=== PATIENT | male | born 1950 | race Caucasian/White ===

== ENCOUNTER 2018-09-16 11:28 | Inpatient (IN) | payer BC, MEDICARE ==
[2018-09-16] MEDS ORDERED: NITROGLYCERIN SL TABS 0.4 MG TAB SUBLINGUAL STA ×3 (12:05)
[2018-09-16] MEDS ORDERED: ASPIRIN 81 MG PO STA (12:05)
--- NOTE | 2018-09-16 12:13 | ED ---
General Adult HPI - General Chief complaint: Chest Pain Stated complaint: Chest pain, SOB Time Seen by Provider: 09/16/18 11:56 Source: patient, RN notes reviewed Mode of arrival: ambulatory Limitations: no limitations - History of Present Illness Initial comments: Patient is a pleasant [age]-year-old male presenting to the emergency Department with complaints of chest discomfort. Symptoms have been steady for the past 4 days. Discomfort is right lateral chest. Patient has been coughing , nonproductive cough. Patient and family questioned if he has had low-grade fever. Discomfort increases with cough and deep breaths. No dyspnea. No history of similar symptoms previously. No leg pain or leg swelling. - Related Data Home Medications Medication Instructions Recorded Confirmed Naproxen Sodium [Aleve] 440 mg PO DAILY PRN 09/16/18 09/16/18 metroNIDAZOLE [metroNIDAZOLE 0.75% 1 applic TOPICAL DAILY 09/16/18 09/16/18 Gel] Allergies Allergy/AdvReac Type Severity Reaction Status Date / Time No Known Allergies Allergy Verified 09/16/18 13:06 Review of Systems ROS Statement: Those systems with pertinent positive or pertinent negative responses have been documented in the HPI. ROS Other: All systems not noted in ROS Statement are negative. Constitutional: Denies: fever Eyes: Denies: eye pain ENT: Denies: ear pain Respiratory: Reports: cough Cardiovascular: Reports: chest pain (Right lateral chest wall) Endocrine: Denies: fatigue Gastrointestinal: Denies: abdominal pain Genitourinary: Denies: dysuria Musculoskeletal: Denies: back pain Skin: Denies: rash Neurological: Denies: weakness Past Medical History Additional Past Medical History / Comment(s): vertigo, History of Any Multi-Drug Resistant Organisms: None Reported Past Surgical History: No Surgical Hx Reported Past Psychological History: No Psychological Hx Reported Smoking Status: Never smoker Past Alcohol Use History: Occasional Past Drug Use History: None Reported General Exam Limitations: no limitations General appearance: alert, in no apparent distress Head exam: Present: atraumatic Eye exam: Present: normal appearance, PERRL ENT exam: Present: normal oropharynx Neck exam: Present: normal inspection Respiratory exam: Present: normal lung sounds bilaterally, chest wall tenderness (Mild right lateral chest, lower.) Cardiovascular Exam: Present: regular rate, normal rhythm Expanded Peripheral pulses: 2+: Radial (R), Radial (L), Dorsalis Pedis (R), Dorsalis Pedis (L) GI/Abdominal exam: Present: soft. Absent: tenderness Extremities exam: Present: normal inspection. Absent: pedal edema, calf tenderness Neurological exam: Present: alert Psychiatric exam: Present: normal affect, normal mood Skin exam: Present: normal color Course Vital Signs 09/16/18 09/16/18 09/16/18 11:32 12:41 12:55 Temperature 99.0 F Pulse Rate 104 H 90 105 H Respiratory 18 18 20 Rate Blood Pressure 172/90 157/93 128/67 O2 Sat by Pulse 99 94 L 93 L Oximetry 09/16/18 09/16/18 09/16/18 13:03 13:17 13:45 Temperature 98.5 F Pulse Rate 75 89 89 Respiratory 20 20 20 Rate Blood Pressure 76/47 108/72 110/76 O2 Sat by Pulse 90 L 92 L 94 L Oximetry 09/16/18 15:07 Temperature Pulse Rate 80 Respiratory 20 Rate Blood Pressure 119/73 O2 Sat by Pulse 95 Oximetry EKG Findings - EKG Comments: EKG Findings:: Sinus tachycardia 104. NC 152. QRS 92. QT 3:30. QTC 444. Left axis. LVH criteria. No acute ST change. Medical Decision Making - Medical Decision Making Patient reevaluated and resting comfortably in bed. Patient and family updated. Case was discussed in detail with Dr. ashley, who will admit for hospital call. - Lab Data Result diagrams: 09/16/18 11:50 09/16/18 11:50 Lab Results 09/16/18 09/16/18 09/16/18 Range/Units 11:50 11:50 11:50 WBC 9.5 (3.8-10.6) k/uL RBC 5.30 (4.30-5.90) m/uL Hgb 16.6 (13.0-17.5) gm/dL Hct 48.1 (39.0-53.0) % MCV 90.7 (80.0-100.0) fL MCH 31.4 (25.0-35.0) pg MCHC 34.6 (31.0-37.0) g/dL RDW 12.9 (11.5-15.5) % Plt Count 304 (150-450) k/uL Neutrophils % 81 % Lymphocytes % 11 % Monocytes % 6 % Eosinophils % 1 % Basophils % 0 % Neutrophils # 7.7 (1.3-7.7) k/uL Lymphocytes # 1.1 (1.0-4.8) k/uL Monocytes # 0.5 (0-1.0) k/uL Eosinophils # 0.1 (0-0.7) k/uL Basophils # 0.0 (0-0.2) k/uL PT (9.0-12.0) sec INR (<1.2) APTT (22.0-30.0) sec D-Dimer (<0.60) mg/L FEU Sodium 139 (137-145) mmol/L Potassium 4.5 (3.5-5.1) mmol/L Chloride 105 (98-107) mmol/L Carbon Dioxide 23 (22-30) mmol/L Anion Gap 11 mmol/L BUN 20 (9-20) mg/dL Creatinine 0.91 (0.66-1.25) mg/dL Est GFR (CKD-EPI)AfAm >90 (>60 ml/min/1.73 sqM) Est GFR (CKD-EPI)NonAf 87 (>60 ml/min/1.73 sqM) Glucose 130 H (74-99) mg/dL Calcium 9.7 (8.4-10.2) mg/dL Magnesium 2.2 (1.6-2.3) mg/dL Total Bilirubin 1.0 (0.2-1.3) mg/dL AST 30 (17-59) U/L ALT 38 (21-72) U/L Alkaline Phosphatase 85 (38-126) U/L Total Creatine Kinase 80 (55-170) U/L CK-MB (CK-2) 0.7 (0.0-2.4) ng/mL CK-MB (CK-2) Rel Index 0.9 Troponin I <0.012 (0.000-0.034) ng/mL Total Protein 7.5 (6.3-8.2) g/dL Albumin 4.1 (3.5-5.0) g/dL 09/16/18 Range/Units 11:50 WBC (3.8-10.6) k/uL RBC (4.30-5.90) m/uL Hgb (13.0-17.5) gm/dL Hct (39.0-53.0) % MCV (80.0-100.0) fL MCH (25.0-35.0) pg MCHC (31.0-37.0) g/dL RDW (11.5-15.5) % Plt Count (150-450) k/uL Neutrophils % % Lymphocytes % % Monocytes % % Eosinophils % % Basophils % % Neutrophils # (1.3-7.7) k/uL Lymphocytes # (1.0-4.8) k/uL Monocytes # (0-1.0) k/uL Eosinophils # (0-0.7) k/uL Basophils # (0-0.2) k/uL PT 9.9 (9.0-12.0) sec INR 1.0 (<1.2) APTT 23.2 (22.0-30.0) sec D-Dimer 1.13 H (<0.60) mg/L FEU Sodium (137-145) mmol/L Potassium (3.5-5.1) mmol/L Chloride (98-107) mmol/L Carbon Dioxide (22-30) mmol/L Anion Gap mmol/L BUN (9-20) mg/dL Creatinine (0.66-1.25) mg/dL Est GFR (CKD-EPI)AfAm (>60 ml/min/1.73 sqM) Est GFR (CKD-EPI)NonAf (>60 ml/min/1.73 sqM) Glucose (74-99) mg/dL Calcium (8.4-10.2) mg/dL Magnesium (1.6-2.3) mg/dL Total Bilirubin (0.2-1.3) mg/dL AST (17-59) U/L ALT (21-72) U/L Alkaline Phosphatase (38-126) U/L Total Creatine Kinase (55-170) U/L CK-MB (CK-2) (0.0-2.4) ng/mL CK-MB (CK-2) Rel Index Troponin I (0.000-0.034) ng/mL Total Protein (6.3-8.2) g/dL Albumin (3.5-5.0) g/dL - Radiology Data Radiology results: report reviewed (Computed tomography scan shows no pulmonary embolism. There is concern for right middle lobe abscess. Probable atelectasis.), image reviewed (Chest x-ray shows bibasilar infiltrates) Disposition Clinical Impression: Lung abscess Disposition: ADMITTED IP TO THIS HOSP Is patient prescribed a controlled substance at d/c from ED?: No Referrals: None,Stated [REFERRING] - 1-2 days Decision Time: 15:43
--- NOTE | 2018-09-16 12:51 | XR ---
EXAMINATION TYPE: XR chest 2V DATE OF EXAM: 09/16/2018 COMPARISON: None INDICATION: Chest pain TECHNIQUE: Frontal and lateral views of the chest are obtained. FINDINGS: The heart size is normal. The pulmonary vasculature is normal. Left lower lobe increased lung markings are present. Correlate for left lower lobe pneumonia. Mild in filtrate may be at the right base.. IMPRESSION: 1. Bibasilar infiltrates. Correlate for pneumonia and atelectasis. Follow-up is recommended.
[2018-09-16] MEDS ORDERED: SODIUM CHLORIDE 0.9% 500 ML 500 ML IV ONE (13:12)
[2018-09-16] MEDS ORDERED: MORPHINE SULFATE 4 MG/ML SYRINGE IV STA (13:13)
[2018-09-16 13:22] LABS: Basophils % (A) 0 %; Eosinophils # (A) 0.1 k/uL (0-0.7); Eosinophils % (A) 1 %; HCT 48.1 % (39.0-53.0); HGB 16.6 gm/dL (13.0-17.5); Lymphocytes # (A) 1.1 k/uL (1.0-4.8); Lymphocytes % (A) 11 %; MCH 31.4 pg (25.0-35.0); MCHC 34.6 g/dL (31.0-37.0); MCV 90.7 fL (80.0-100.0); Mean Platelet Volume 8.6; Monocytes # (A) 0.5 k/uL (0-1.0); Monocytes % (A) 6 %; Neutrophils # (A) 7.7 k/uL (1.3-7.7); Neutrophils % (A) 81 %; Platelet Count 304 k/uL (150-450); RDW 12.9 % (11.5-15.5); WBC 9.5 k/uL (3.8-10.6)
[2018-09-16 13:37] LABS: Partial Thromboplastin Time 23.2 sec (22.0-30.0); Prothrombin Time 9.9 sec (9.0-12.0)
[2018-09-16 13:38] LABS: ALT 38 U/L (21-72); AST 30 U/L (17-59); Albumin 4.1 g/dL (3.5-5.0); Alkaline Phosphatase 85 U/L (38-126); Anion Gap 11 mmol/L; Blood Urea Nitrogen 20 mg/dL (9-20); Calcium 9.7 mg/dL (8.4-10.2); Carbon Dioxide 23 mmol/L (22-30); Glucose 130 mg/dL (74-99); Magnesium 2.2 mg/dL (1.6-2.3); Potassium 4.5 mmol/L (3.5-5.1); Sodium 139 mmol/L (137-145); Total Protein 7.5 g/dL (6.3-8.2)
[2018-09-16 13:46] LABS: Creatine Kinase 80 U/L (55-170)
[2018-09-16 13:59] LABS: Chloride 105 mmol/L (98-107); Creatine Kinase MB 0.7 ng/mL (0.0-2.4); Troponin I <0.012 ng/mL (0.000-0.034)
[2018-09-16 14:01] LABS: D-Dimer 1.13 mg/L FEU (<0.60)
--- NOTE | 2018-09-16 15:06 | CT ---
CT CHEST FOR PULMONARY EMBOLISM. EXAMINATION TYPE: CT angio chest DATE OF EXAM: 09/16/2018 INDICATION: chest pain CT DLP: 577.1 mGycm, Automated exposure control for dose reduction was used. CONTRAST: Patient injected with 100 mL of Isovue 370. COMPARISON: None TECHNIQUE: CT of the chest is performed on a spiral scan at 2 mm thick sections. Study is performed with intravenous contrast timed for evaluation for pulmonary embolism. This will limit additional po rtions of the evaluation. 3-D MIP images reconstructed by the technologist are reviewed on the compu ter in the coronal and sagittal planes. FINDINGS: No persistent filling defects are evident to suggest an acute pulmonary embolism. No mediastinal or hilar adenopathy enlarged by CT criteria is evident. The ascending aorta diameter at the level of the main pulmonary artery is 3.2 cm. The main pulmonary artery diameter at the bifur cation is 2.4 cm. There is a 6.0 x 3.3 cm heterogenous collection in the right middle lobe above the diaphragm. This marcelo s a heterogenous internal signal suggestive for abscess. Clinical correlation recommended. There is a small right pleural effusion. Streak opacities at bilateral lung bases. Correlate for atel ectasis and pneumonia. Some atelectasis or infiltrate may be within the lingula. There is mild fatty infiltration to the liver. Gallstone is present at the neck of the gallbladder. IMPRESSIONS: 1. No acute pulmonary embolism. 2. Collection with debris within the anterior right middle lobe above the diaphragm suspicious for ab scess. Clinical correlation recommended. 3. Small right lower lobe pleural effusion. Bibasilar infiltrates are present likely on the basis of atelectasis or possibly pneumonia. 4. Cholelithiasis
[2018-09-16] MEDS ORDERED: PIPERACILLIN-TAZOBACTAM 3.375 GM in SODIUM CHLORIDE 0.9% 100 ML IVPB STA (15:43)
[2018-09-16] MEDS ORDERED: LEVOFLOXACIN 750MG-D5W PMX 750 MG in DEXTROSE/WATER 1 150ML.BAG IVPB STA (15:43)
[2018-09-16] MEDS ORDERED: PNEUMONIA PROTOCOL UTILIZED 1 EACH MISC PO PRN (15:43)
[2018-09-16] MEDS: SODIUM CHLORIDE 0.9% 1,000 ML IV SCH (16:05)
--- NOTE | 2018-09-16 16:30 | P.HPIM ---
History of Present Illness H&P Date: 09/16/18 The patient is a 68 yo M with no significant PMH who presented to the ED for R sided chest pain of 5 days duration. He notes that he was in his usual state of health until 5 days ago when him and his developed a URI w/ cough, runny nose, and sore throat. He then subsequently developed a R sided pleuritic chest pain which he initially attributed to a muscle sprain likely from moving furniture around the house. The pain is pleuritic in nature, brought on w/ movement, deep breathing, or coughing w/ associated non-productive cough. He otherwise denied fever, chills, SOB, nausea, vomiting, visual disturbances, dizziness, LE pain, LE swelling, recent travel, sick contacts, difficuly swallowing, or aspirations. He has never had such symptoms before. He works at a [employer] company for [employer] In the ED, the patient had an extensive w/u WBC 9.5, Hgb 16.0, D-Dimer 1.13, Sodium 139, Cr 0.9. A Chest CTA was ordered and showed a 6.0 x 3.3 cm heterogenous collection in the R middle lobe over the diaphragm concerning for an abscess along w/ small R pleural effusion. Review of Systems Pertinent positives and negatives as discussed in HPI, a complete review of systems was performed and all other systems are negative. Past Medical History Additional Past Medical History / Comment(s): vertigo, History of Any Multi-Drug Resistant Organisms: None Reported Past Surgical History: No Surgical Hx Reported Past Psychological History: No Psychological Hx Reported Smoking Status: Never smoker Past Alcohol Use History: Occasional Past Drug Use History: None Reported Medications and Allergies Home Medications Medication Instructions Recorded Confirmed Type Naproxen Sodium [Aleve] 440 mg PO DAILY PRN 09/16/18 09/16/18 History metroNIDAZOLE [metroNIDAZOLE 0.75% 1 applic TOPICAL DAILY 09/16/18 09/16/18 History Gel] Allergies Allergy/AdvReac Type Severity Reaction Status Date / Time No Known Allergies Allergy Verified 09/16/18 13:06 Physical Exam Vitals: Vital Signs Temp Pulse Resp BP Pulse Ox 09/16/18 16:00 82 20 114/84 95 09/16/18 15:07 80 20 119/73 95 09/16/18 13:45 98.5 F 89 20 110/76 94 L 11/21/18 13:17 89 20 108/72 92 L 09/16/18 13:03 75 20 76/47 90 L 09/16/18 12:55 105 H 20 128/67 93 L 09/16/18 12:41 90 18 157/93 94 L 09/16/18 11:32 99.0 F 104 H 18 172/90 99 Intake and Output 09/16/18 09/16/18 09/16/18 06:59 14:59 22:59 Other: Weight 106.594 kg General: [non toxic], [no distress], [appears at stated age], [normal weight], obese Derm: [no unusual rashes/lesions] [no unusual ecchymoses], [warm], [dry] Head: [atraumatic], [normocephalic], [symmetric] Eyes: [EOMI], [no lid lag], [anicteric sclera], [pupils equal round reactive to light] ENT: [Nose and ears atraumatic], [no thrush], [no pharyngeal erythema] Neck: [No thyromegaly], [no cervical lymphadenopathy], [trachea midline], [ supple] Mouth: [no lip lesion], [mucus membranes moist] Cardiovascular: [S1S2 reg], [no murmur], [positive posterior tibial pulse bilateral], [no edema], [capillary refill less than 2 seconds] Lungs: [Bibasilar decreased breath sounds w/ R sided mild ronchi appreciated], [ no rales] , [no accessory muscle use] Abdominal: [soft], [ nontender to palpation], [no guarding], [no appreciable organomegaly], [normal bowel sounds] Ext: [no gross muscle atrophy], [muscle strength 5 out of 5 in all 4 extremities grossly], [no contractures], Neuro: [ CN II-XI grossly intact], [light touch intact all 4 extremities], [ finger to nose within normal limits], Psych: [Alert], [oriented], [appropriate affect] Results CBC & Chem 7: 09/16/18 11:50 09/16/18 11:50 Labs: Abnormal Lab Results - Last 24 Hours (Table) 09/16/18 09/16/18 Range/Units 11:50 11:50 D-Dimer 1.13 H (<0.60) mg/L FEU Glucose 130 H (74-99) mg/dL Assessment and Plan Plan: Lung abscess -Will start patient on Clindamycin IV 600 mg q8h for now -Pulmonary consult -Blood cultures, Sputum cultures -C/w NS 100 cc/hr DVT//GI prophylaxis - Lovenox - No indication for GI prophylaxis Discussed with: Patient, Anticipated discharge date: 09/18/[address]: Home A total of 60 minutes was spent on the care of this complex patient more than 50 % of the time was spent in counseling and care coordination.
[2018-09-17] MEDS ORDERED: PIPERACILLIN-TAZOBACTAM 3.375 GM in SODIUM CHLORIDE 0.9% 100 ML IVPB SCH ×2
[2018-09-17] MEDS: CLINDAMYCIN 600 MG in DEXTROSE 5% IN WATER 50 ML IVPB SCH ×4 (00:40→08:08)
[2018-09-17] MEDS: SODIUM CHLORIDE 0.9% 1,000 ML IV SCH ×3 (05:57→20:42)
--- NOTE | 2018-09-17 07:25 | XR ---
EXAMINATION TYPE: XR chest 2V DATE OF EXAM: 09/17/2018 COMPARISON: 09/16/2018 HISTORY: Shortness of breath TECHNIQUE: Frontal and lateral views of the chest are obtained. FINDINGS: Scattered senescent parenchymal changes noted. Hyperinflation compatible with COPD. Stable basilar infiltrates and/or atelectasis. Heart size is stable. Mediastinal structures are stable and grossly unremarkable. No evidence for hilar prominence. Degenerative changes dorsal spine. IMPRESSION: 1. Stable basilar infiltrates and/or atelectasis.
[2018-09-17 09:24] LABS: HCT 43.7 % (39.0-53.0); HGB 14.2 gm/dL (13.0-17.5); MCH 30.1 pg (25.0-35.0); MCHC 32.5 g/dL (31.0-37.0); MCV 92.8 fL (80.0-100.0); Mean Platelet Volume 7.8; Platelet Count 338 k/uL (150-450); RBC 4.71 m/uL (4.30-5.90); RDW 12.9 % (11.5-15.5); WBC 8.9 k/uL (3.8-10.6)
[2018-09-17] MEDS ORDERED: ACETAMINOPHEN TAB 325 MG TAB PO PRN (12:00)
[2018-09-17] MEDS ORDERED: IBUPROFEN 600 MG TAB PO PRN (12:00)
[2018-09-17] MEDS ORDERED: traMADol 50 MG TAB PO PRN (12:00)
--- NOTE | 2018-09-17 12:05 | P.PN ---
Subjective Progress Note Date: 09/17/18 Principal diagnosis: chest pain Patient is otherwise healthy 68-year-old male with a history of vertigo who presented to the emergency department complaining of chest pain for 5 days. In the ER he underwent an extensive evaluation. His white blood cell count was within normal limits at 9.5, hemoglobin 16, d-dimer was elevated at 1.13. He subsequently underwent a CTA of the chest which showed a 6 x 3.3 cm right middle lobe abscess along with a small right pleural effusion. He was started on Zosyn and Levaquin and arrangements were made for admission. His antibiotics were subsequently adjusted to clindamycin. Pulmonary and ID were consulted. Patient seen and examined at bedside. He continues to have right-sided chest pain with deep inspiration, fatigue, malaise, decreased appetite. He denies any fevers or chills. No nausea, vomiting, or diarrhea. We discussed his results that leg the plan for a prolonged course of antibiotics along with follow-up and repeat imaging to ensure resolution. Patient is in agreement. Objective - Vital Signs Vital signs: Vital Signs Temp 98.6 F 09/17/18 07:19 Pulse 79 09/17/18 07:19 Resp 18 09/17/18 07:19 BP 138/80 09/17/18 07:19 Pulse Ox 94 L 09/17/18 07:19 Intake & Output 09/16/18 09/17/18 09/17/18 18:59 06:59 18:59 Output Total 400 Balance -400 Weight 106.594 kg Output: Urine 400 Other: Voiding Method Urinal # Voids 2 - Exam General: Ill-appearing, no distress, appears at stated age, obese Derm: warm, dry Head: atraumatic, normocephalic, symmetric Eyes: EOMI, no lid lag, anicteric sclera Mouth: no lip lesion, mucus membranes moist Cardiovascular: S1S2 reg, no murmur, positive posterior tibial pulse bilateral, Lungs: Sounds bilateral bases, no rhonchi, no rales , no accessory muscle use Abdominal: soft, nontender to palpation, no guarding, no appreciable organomegaly Ext: no gross muscle atrophy, no edema, no contractures Neuro: CN II-XI grossly intact, no focal neuro deficits Psych: Alert, oriented, appropriate affect - Labs CBC & Chem 7: 09/17/18 08:11 09/16/18 11:50 Labs: Abnormal Lab Results - Last 24 Hours (Table) 09/16/18 09/16/18 09/16/18 Range/Units 11:50 11:50 11:50 D-Dimer 1.13 H (<0.60) mg/L FEU Glucose 130 H (74-99) mg/dL Plasma Lactic Acid Dwayne 2.4 H* (0.7-2.0) mmol/L Assessment and Plan Assessment: Pulmonary abscess -ID and pulmonary recommendations -Clindamycin -We'll need repeat imaging as outpatient -Bronchodilators -Sputum culture productive -IV fluids Obesity with BMI 30.2 -Structured outpatient weight loss Lactic acidosis, resolved DVT prophylaxis: SCDs Discussed with: Patient, nursing Anticipated discharge: 24-[address]: Home A total of 25 minutes was spent on the care of this complex patient more than 50 % of the time was spent in counseling and care coordination.
--- NOTE | 2018-09-17 12:44 | P.CNPUL ---
History of Present Illness Consult date: 09/17/18 Requesting physician: Rony Ferrera Reason for consult: dyspnea, abnormal CXR/CT Chief complaint: Right-sided chest discomfort, shortness of breath History of present illness: This is a very pleasant 68-year-old gentleman who follows with Dr. Joseph as his primary care physician. No significant past medical history. He is a lifelong nonsmoker. He presented here to the emergency room yesterday with a one-week complaint of increasing shortness of breath, cough and congestion. He also had some right-sided chest discomfort that he initially thought was due to a muscle strain from moving furniture but then the pain continued and eventually got worse and he presented here to the ER for the same. A CT angiogram of the chest revealed a 6.0 x 3.3 cm heterogenous collection in the right middle lobe above the diaphragm suspicious for abscess. There is also a small right lower lobe pleural effusion and basilar infiltrates. He is seen today in consultation on the regular medical floor. He is awake and alert in no acute distress. He does have pain on inhalation. Still with some right anterior wall chest pain. Currently afebrile. He is maintaining O2 saturations in the mid 90s on room air. Hemodynamically stable. White count 8.9. Initial lactic 2.5, currently 1.2. He is on clindamycin. Review of Systems 14 point review of system was conducted. All negative other than as mentioned in HPI. Past Medical History Additional Past Medical History / Comment(s): vertigo, hepatitis in his 20's not sure type History of Any Multi-Drug Resistant Organisms: None Reported Past Surgical History: No Surgical Hx Reported Additional Past Surgical History / Comment(s): wisdome teeth removed Additional Past Anesthesia/Blood Transfusion Reaction / Comment(s): vertigo, mild clausterphobia Smoking Status: Never smoker - Past Family History Mother Family Medical History: Dementia Additional Family Medical History / Comment(s): "heart disease" Father Family Medical History: Congestive Heart Failure (CHF), CVA/TIA Additional Family Medical History / Comment(s): heart disease, pacemaker Medications and Allergies Home Medications Medication Instructions Recorded Confirmed Type Naproxen Sodium [Aleve] 440 mg PO DAILY PRN 09/16/18 09/16/18 History metroNIDAZOLE [metroNIDAZOLE 0.75% 1 applic TOPICAL DAILY 09/16/18 09/16/18 History Gel] Allergies Allergy/AdvReac Type Severity Reaction Status Date / Time No Known Allergies Allergy Verified 09/16/18 13:06 Physical Exam Vitals: Vital Signs Temp Pulse Pulse Resp BP BP Pulse Ox 09/17/18 07:19 98.6 F 79 18 138/80 94 L 09/16/18 22:15 99.3 F 89 16 137/75 94 L 09/16/18 19:45 99.1 F 94 16 140/72 95 09/16/18 19:00 98.1 F 96 20 128/75 95 09/16/18 18:18 88 20 128/75 95 09/16/18 17:23 98.8 F 09/16/18 17:18 94 20 134/72 96 09/16/18 16:00 82 20 114/84 95 09/16/18 15:07 80 20 119/73 95 09/16/18 13:45 98.5 F 89 20 110/76 94 L 09/16/18 13:17 89 20 108/72 92 L 09/16/18 13:03 75 20 76/47 90 L 09/16/18 12:55 105 H 20 128/67 93 L 09/16/18 12:41 90 18 157/93 94 L Intake and Output 09/16/18 09/17/18 09/17/18 22:59 06:59 14:59 Output Total 400 Balance -400 Output: Urine 400 Other: Voiding Method Urinal # Voids 1 2 GENERAL EXAM: Alert, active, comfortable in no apparent distress. On room air. HEAD: Normocephalic. EYES: Normal reaction of pupils, equal size. NOSE: Clear with pink turbinates. THROAT: No erythema or exudates. NECK: No masses, no JVD. CHEST: No chest wall deformity. LUNGS: Equal air entry with faint crackles in the posterior bases. CVS: S1 and S2 normal with no audible murmur, regular rhythm. ABDOMEN: No hepatosplenomegaly, normal bowel sounds, no guarding or rigidity. SPINE: No scoliosis or deformity SKIN: No rashes CENTRAL NERVOUS SYSTEM: No focal deficits, tone is normal in all 4 extremities. EXTREMITIES: There is no peripheral edema. No clubbing, no cyanosis. Peripheral pulses are intact. Results - Laboratory Findings CBC and BMP: 09/17/18 08:11 09/16/18 11:50 PT/INR, D-dimer PT 9.9 sec (9.0-12.0) 09/16/18 11:50 INR 1.0 (<1.2) 09/16/18 11:50 D-Dimer 1.13 mg/L FEU (<0.60) H 09/16/18 11:50 Abnormal lab findings: Abnormal Labs 09/16/18 09/16/18 09/16/18 11:50 11:50 11:50 D-Dimer 1.13 H Glucose 130 H Plasma Lactic Acid Dwayne 2.4 H* - Diagnostic Findings Chest x-ray: image reviewed CT scan - chest: image reviewed Assessment and Plan Assessment: Impression: #1 Right anterior chest wall pain secondary to 6.0 x 3.3 cm heterogenous collection in the right middle lobe above the diaphragm suspicious for abscess. #2 Febrile illness secondary to above. #3 Basilar infiltrates/atelectasis. #4 History of vertigo. Plan: The patient was seen and evaluated by Dr. Montero. Chest x-ray and CAT scans were reviewed. The patient is currently on clindamycin. Infectious disease has been consulted. We will continue to follow and make further recommendations based on his clinical status. I, the cosigning physician, performed a history & physical examination of the patient. Lungs sounds with crackles in the bilateral posterior bases. Maintaining good O2 saturations in the 90s on room air. I discussed the assessment and plan of care with my nurse practitioner, Anny Kuhn. I attest to the above note as dictated by her. Time with Patient: Greater than 30
[2018-09-17] MEDS ORDERED: LEVOFLOXACIN 750MG-D5W PMX 750 MG in DEXTROSE/WATER 1 150ML.BAG IVPB SCH (16:00)
[2018-09-17] MEDS: AMPICILLIN-SULBACTAM 3 GM in SODIUM CHLORIDE 0.9% 100 ML IVPB SCH ×2 (17:43→23:16)
[2018-09-18] MEDS: AMPICILLIN-SULBACTAM 3 GM in SODIUM CHLORIDE 0.9% 100 ML IVPB SCH ×3 (05:18→17:59)
[2018-09-18] MEDS: SODIUM CHLORIDE 0.9% 1,000 ML IV SCH ×2 (08:32→17:59)
--- NOTE | 2018-09-18 11:31 | CONS ---
CONSULTATION DATE OF SERVICE: 09/17/2018. REASON FOR CONSULTATION: Lung abscess and antibiotic recommendation. HISTORY OF PRESENT ILLNESS: The patient is a 68-year-old, male presenting to the ER at [facility] with chief complaints of increasing shortness of breath, cough and congestion. His symptoms have been going on for 2 or 3 days before he presented to the hospital. The patient did mention that on occasion he did have some choking on the food and followed by coughing spells. The patient has been complaining of pain to the right side of the chest, more of a dull aching pain, intensity about 4 to 5 out of 10 and no radiation. The patient did mention that the pain is more with taking deep breath or coughing. His cough is mostly mild to moderate in intensity and has been dry in nature. The patient denies having any nausea, no vomiting. No abdominal pain and no diarrhea. With these symptoms, the patient has been evaluated by the ER physician. On arrival to the ER, the patient did have a low-grade fever of 99. The patient's white count was normal. Lactic acid was elevated 2.4. The patient did have a chest x-ray obtained, which bibasilar infiltrate, correlate for pneumonia and atelectasis. A CT angiogram was done which was negative for PE. However, it has been read as 6 x 3.3 cm heterogeneous collection in the right middle lobe above the diaphragm. This has internal signal suggestive of an abscess. The patient was started on clindamycin. Infectious Disease was consulted for further recommendation regarding antibiotic therapy. REVIEW OF SYSTEMS: CONSTITUTIONAL: Positive for weakness and some chills. EYES: No complaint. ENT: No complaint. RESPIRATORY: As per HPI. CARDIOVASCULAR: No complaint. GENITOURINARY: No complaint. GASTROINTESTINAL: No complaint. MUSCULOSKELETAL: No complaint. INTEGUMENTARY: No complaint. PSYCHOLOGICAL: No complaint. ENDOCRINE: No complaint. NEUROLOGIC: No complaint. PAST MEDICAL HISTORY: Vertigo and hepatitis. PAST SURGICAL HISTORY: [place] teeth removed. SOCIAL HISTORY: No history of smoking, drinking, or drug use. FAMILY HISTORY: Mother with history of dementia. Father history of congestive heart failure with CVA and TIA. ALLERGIES: No known drug allergies. MEDICATIONS: Medications include the patient is currently on clindamycin, Levaquin, Ultram, Motrin and Tylenol. PHYSICAL EXAMINATION: On examination, blood pressure 165/87 with a pulse of 80, temperature 98.7. He is 94% 2 L nasal cannula. General description is an elderly male up in the bed in no distress. No tachypnea or accessory muscle of respiration use. HEENT examination shows no pallor or scleral icterus. Oral mucous membrane is dry. No pharyngeal erythema or thrush. NECK: Trachea central. No thyromegaly. LUNGS: Unlabored breathing, with decreased breath sounds at the bases. No wheeze or crackle. HEART: S1, S2. Regular rate and rhythm. ABDOMEN: Soft, no tenderness. No guarding or rigidity. EXTREMITIES: No edema of feet. Skin Examination: No rash or mass palpable. NEUROLOGICAL: Patient is awake, alert, oriented x3. Mood and affect normal. LABS: Hemoglobin is 14.2, white count of 8.9 with a BUN of 20, creatinine 0.91. Lactic has been 2.4. Blood cultures were obtained which are currently pending. DIAGNOSTIC IMPRESSION AND PLAN: Patient admitted to the hospital with increasing shortness of breath. He did also have a cough which is dry in nature along with pleuritic chest pain in a patient who did give a history of choking on the food concern for possible right middle lobe abscess with concern for mixed radha to be the likely agent. PLAN: 1. Discontinue clindamycin. 2. Will start the patient on Unasyn 3 grams q.6 hours. 3. We will review the CT with the radiologist tomorrow to see if the area can be drained CT-guided which should be sent for cultures. 4. We will follow up on clinical condition and culture to further adjust medication if needed. Thank you for this consultation. Will follow this patient along with you. MMODL / IJN: [id number] /
--- NOTE | 2018-09-18 12:55 | P.PN ---
Subjective Progress Note Date: 09/18/18 Principal diagnosis: chest pain Patient is otherwise healthy 68-year-old male with a history of vertigo who presented to the emergency department complaining of chest pain for 5 days. In the ER he underwent an extensive evaluation. His white blood cell count was within normal limits at 9.5, hemoglobin 16, d-dimer was elevated at 1.13. He subsequently underwent a CTA of the chest which showed a 6 x 3.3 cm right middle lobe abscess along with a small right pleural effusion. He was started on Zosyn and Levaquin and arrangements were made for admission. His antibiotics were subsequently adjusted to clindamycin. Pulmonary and ID were consulted. Infectious disease changed antibiotic to unasyn. Patient seen and examined at bedside. Feels the same as yesterday, tired, fatigued, pain with movement and deep inspiration. Still with non productive cough. No nausea, vomiting, diarrhea. Objective - Vital Signs Vital signs: Vital Signs Temp 98.6 F 09/18/18 05:50 Pulse 81 09/18/18 05:50 Resp 18 09/18/18 05:50 BP 149/84 09/18/18 05:50 Pulse Ox 95 09/18/18 05:50 Intake & Output 09/17/18 09/18/18 09/18/18 18:59 06:59 18:59 Intake Total 850 Balance 850 Intake: Intake, IV Titration 850 Amount Clindamycin 600 mg In 50 Dextrose 5% in Water 50 ml @ 50 mls/hr IVPB Q8HR [facility] Rx#:[id number] Sodium Chloride 0.9% 1, 800 000 ml @ 100 mls/hr IV . Q10H [facility] Rx#:[id number] Other: # Voids 2 - Exam General: Ill-appearing, no distress, appears at stated age, obese Derm: warm, dry Head: atraumatic, normocephalic, symmetric Eyes: EOMI, no lid lag, anicteric sclera Mouth: no lip lesion, mucus membranes moist Cardiovascular: S1S2 reg, no murmur, positive posterior tibial pulse bilateral, Lungs: Decreased breath sounds bilateral bases, no rhonchi, no rales , no accessory muscle use Abdominal: soft, nontender to palpation, no guarding, no appreciable organomegaly Ext: no gross muscle atrophy, no edema, no contractures Neuro: CN II-XI grossly intact, no focal neuro deficits Psych: Alert, oriented, appropriate affect - Labs CBC & Chem 7: 09/17/18 08:11 09/16/18 11:50 Labs: Microbiology - Last 24 Hours (Table) 09/16/18 11:50 Blood Culture - Preliminary Blood No Growth after 24 hours Assessment and Plan Assessment: Pulmonary abscess -ID will discuss with radiology about percutaneous drainage for culture - pulmonary recommendations -unasyn -Repeat imaging as outpatient -Bronchodilators -Sputum culture if productive -IV fluids Obesity with BMI 30.2 -Structured outpatient weight loss Lactic acidosis, resolved DVT prophylaxis: SCDs Discussed with: Patient, nursing Anticipated discharge: 24-[address]: Home A total of 25 minutes was spent on the care of this complex patient more than 50 % of the time was spent in counseling and care coordination.
--- NOTE | 2018-09-18 15:18 | P.PN ---
Subjective Progress Note Date: 09/18/18 Principal diagnosis: Right-sided chest discomfort, shortness of breath, right middle lobe abscess This is a very pleasant 68-year-old gentleman who follows with Dr. Joseph as his primary care physician. No significant past medical history. He is a lifelong nonsmoker. He presented here to the emergency room yesterday with a one-week complaint of increasing shortness of breath, cough and congestion. He also had some right-sided chest discomfort that he initially thought was due to a muscle strain from moving furniture but then the pain continued and eventually got worse and he presented here to the ER for the same. A CT angiogram of the chest revealed a 6.0 x 3.3 cm heterogenous collection in the right middle lobe above the diaphragm suspicious for abscess. There is also a small right lower lobe pleural effusion and basilar infiltrates. He is seen today in consultation on the regular medical floor. He is awake and alert in no acute distress. He does have pain on inhalation. Still with some right anterior wall chest pain. Currently afebrile. He is maintaining O2 saturations in the mid 90s on room air. Hemodynamically stable. White count 8.9. Initial lactic 2.5, currently 1.2. He is on clindamycin. On 09/18/2018 patient seen in follow-up on the medical surgical floor. He has some mild chest discomfort with inspiration in the right chest. Afebrile, room air pulse ox is 95%, lung sounds are positive for a few crackles over anterior right chest. Did have a coughing spell this morning, was able to bring up small amount of clears phlegm. No fever, no chills. Has not been able to produce a good sputum sample, blood culture remains negative at the 24-hour josselin. Current antibiotic coverage is Unasyn. Maintenance IV fluids is 0.9 normal saline at a rate of 100. His lab work was reviewed, CBC showed WBC of 8.9, hemoglobin of 14.2. Latest lactic acid yesterday was 1.2. No new chest x- ray was done. Patient was seen in consultation by ID service, and interventional radiology will be consulted in regards to a possible cutaneous drainage of the right middle lobe abscess Objective - Vital Signs Vital signs: Vital Signs Temp 97.7 F 09/18/18 15:06 Pulse 90 09/18/18 15:06 Resp 18 11/23/18 15:06 BP 169/99 09/18/18 15:06 Pulse Ox 95 09/18/18 15:06 Intake & Output 09/17/18 09/18/18 09/18/18 18:59 06:59 18:59 Intake Total 850 Balance 850 Intake: Intake, IV Titration 850 Amount Clindamycin 600 mg In 50 Dextrose 5% in Water 50 ml @ 50 mls/hr IVPB Q8HR [facility] Rx#:[id number] Sodium Chloride 0.9% 1, 800 000 ml @ 100 mls/hr IV . Q10H [facility] Rx#:[id number] Other: # Voids 2 2 - Exam GENERAL EXAM: Alert, active, comfortable in no apparent distress. On room air. HEAD: Normocephalic. EYES: Normal reaction of pupils, equal size. NOSE: Clear with pink turbinates. THROAT: No erythema or exudates. NECK: No masses, no JVD. CHEST: No chest wall deformity. LUNGS: Equal air entry with faint crackles in the posterior bases. CVS: S1 and S2 normal with no audible murmur, regular rhythm. ABDOMEN: No hepatosplenomegaly, normal bowel sounds, no guarding or rigidity. SPINE: No scoliosis or deformity SKIN: No rashes CENTRAL NERVOUS SYSTEM: No focal deficits, tone is normal in all 4 extremities. - Labs CBC & Chem 7: 09/17/18 08:11 09/16/18 11:50 Labs: Microbiology - Last 24 Hours (Table) 09/16/18 11:50 Blood Culture - Preliminary Blood No Growth after 24 hours Assessment and Plan Plan: Impression: #1 Right anterior chest wall pain secondary to 6.0 x 3.3 cm heterogenous collection in the right middle lobe above the diaphragm suspicious for abscess. #2 Febrile illness secondary to above. #3 Basilar infiltrates/atelectasis. #4 History of vertigo. Plan: Continue with antibiotic coverage according to ID service recommendations. Clinically patient is denying any acute complaints, no fever or chills, no significant dyspnea, though has some mild right-sided chest discomfort with inspiration. ID service is planning on consulting interventional radiology in regards to a percutaneous drainage of the right middle lobe abscess. We'll continue to follow I performed a history & physical examination of the patient and discussed their management with my nurse practitioner, Jessica Mckay. I reviewed the nurse practitioner's note and agree with the documented findings and plan of care. Lung sounds are few scattered crackles over anterior right chest. The findings and the impression was discussed with the patient. I attest to the documentation by the nurse practitioner. Time with Patient: Less than 30
[2018-09-19] MEDS: AMPICILLIN-SULBACTAM 3 GM in SODIUM CHLORIDE 0.9% 100 ML IVPB SCH ×4 (00:25→17:30)
--- NOTE | 2018-09-19 01:43 | PN ---
PROGRESS NOTE DATE OF SERVICE: 09/18/2018. REASON FOR FOLLOWUP: Lung abscess. INTERVAL HISTORY: The patient was seen on rounds this morning where the patient has been afebrile. He is complaining of pain to the right side of the chest, more of a diffuse pain and continues to worsen on deep breathing and cough. Cough has been noted to be more intensity. . No nausea, no vomiting. No abdominal pain. No diarrhea. EXAMINATION: Blood pressure is 159/86, pulse of 79, temperature 98.1. He is 93% on 2 L nasal cannula. General description is an elderly male lying in bed in no distress. Respiratory system: Unlabored breathing with decreased breath sounds in the bases. No wheeze. Heart S1, S2. Regular rate and rhythm. Abdomen soft, no tenderness. EXTREMITIES: No edema of the feet. LABS: Hemoglobin is 14.8, white count 8.9 with a BUN of 20, creatinine 0.91. The patient CT was reviewed with radiologist, did mention has more of pattern and no features suggestive of an abscess and hence recommended no drainage. DIAGNOSTIC IMPRESSION AND PLAN: Patient with right middle lobe abnormality seen on the CT with initial concern for possible abscess. CT was reviewed with radiologist and mentioned to have no liquid component for it to be drained. We will keep the patient on IV antibiotic therapy. We will add oral Levaquin in addition to the Unasyn and treat for possible community- acquired pneumonia with abscess and in view of the extensive infection, may benefit from IV antibiotic therapy on discharge that will be discussed with case management for arrangement. Continue supportive care. MMODL / IJN: [id number] /
[2018-09-19] MEDS: SODIUM CHLORIDE 0.9% 1,000 ML IV SCH ×2 (05:47→13:50)
[2018-09-19] MEDS: LEVOFLOXACIN 750 MG TAB PO SCH (08:32)
--- NOTE | 2018-09-19 12:02 | P.PN ---
Subjective Progress Note Date: 09/19/18 Principal diagnosis: Right-sided chest discomfort, shortness of breath, right middle lobe abscess This is a very pleasant 68-year-old gentleman who follows with Dr. Joseph as his primary care physician. No significant past medical history. He is a lifelong nonsmoker. He presented here to the emergency room yesterday with a one-week complaint of increasing shortness of breath, cough and congestion. He also had some right-sided chest discomfort that he initially thought was due to a muscle strain from moving furniture but then the pain continued and eventually got worse and he presented here to the ER for the same. A CT angiogram of the chest revealed a 6.0 x 3.3 cm heterogenous collection in the right middle lobe above the diaphragm suspicious for abscess. There is also a small right lower lobe pleural effusion and basilar infiltrates. He is seen today in consultation on the regular medical floor. He is awake and alert in no acute distress. He does have pain on inhalation. Still with some right anterior wall chest pain. Currently afebrile. He is maintaining O2 saturations in the mid 90s on room air. Hemodynamically stable. White count 8.9. Initial lactic 2.5, currently 1.2. He is on clindamycin. On 09/18/2018 patient seen in follow-up on the medical surgical floor. He has some mild chest discomfort with inspiration in the right chest. Afebrile, room air pulse ox is 95%, lung sounds are positive for a few crackles over anterior right chest. Did have a coughing spell this morning, was able to bring up small amount of clears phlegm. No fever, no chills. Has not been able to produce a good sputum sample, blood culture remains negative at the 24-hour josselin. Current antibiotic coverage is Unasyn. Maintenance IV fluids is 0.9 normal saline at a rate of 100. His lab work was reviewed, CBC showed WBC of 8.9, hemoglobin of 14.2. Latest lactic acid yesterday was 1.2. No new chest x- ray was done. Patient was seen in consultation by ID service, and interventional radiology will be consulted in regards to a possible cutaneous drainage of the right middle lobe abscess. The patient is seen again today 09/19/2018 in follow-up on the regular medical floor. He is currently resting quite comfortably in bed. He is awake and alert in no acute distress. He states that right-sided chest pain has nearly resolved. He is breathing easier today as compared to yesterday. He is starting to feel better. Less shortness of breath. Less cough. He is currently afebrile. Maintaining good O2 saturations in the 90s on 2 L/m per nasal cannula. He has been seen and evaluated by infectious disease. CT reviewed with radiology who feels there is no liquid component for it to be drained. The patient will continue on IV Unasyn in addition to oral Levaquin for possible community-acquired pneumonia with abscess. Blood culture reveals no growth. White count 8.9. Hemoglobin 14.2. Objective - Vital Signs Vital signs: Vital Signs Temp 97.6 F 09/19/18 07:00 Pulse 73 09/19/18 07:00 Resp 18 09/19/18 07:00 BP 159/87 09/19/18 07:00 Pulse Ox 93 L 09/19/18 07:00 Intake & Output 09/18/18 09/19/18 09/19/18 18:59 06:59 18:59 Intake Total 800 Balance 800 Intake: Intake, IV Titration 800 Amount Ampicillin-Sulbactam 3 gm 100 In Sodium Chloride 0.9% 100 ml @ 200 mls/hr IVPB Q6HR [facility] Rx#:[id number] Sodium Chloride 0.9% 1, 700 000 ml @ 100 mls/hr IV . Q10H [facility] Rx#:[id number] Other: # Voids 2 1 - Exam GENERAL EXAM: Alert, active, comfortable in no apparent distress. HEAD: Normocephalic. EYES: Normal reaction of pupils, equal size. NOSE: Clear with pink turbinates. THROAT: No erythema or exudates. NECK: No masses, no JVD. CHEST: No chest wall deformity. LUNGS: Equal air entry with no crackles, wheeze, rhonchi or dullness. CVS: S1 and S2 normal with no audible murmur, regular rhythm. ABDOMEN: No hepatosplenomegaly, normal bowel sounds, no guarding or rigidity. SPINE: No scoliosis or deformity SKIN: No rashes CENTRAL NERVOUS SYSTEM: No focal deficits, tone is normal in all 4 extremities. EXTREMITIES: There is no peripheral edema. No clubbing, no cyanosis. Peripheral pulses are intact. - Labs CBC & Chem 7: 09/17/18 08:11 09/16/18 11:50 Labs: Microbiology - Last 24 Hours (Table) 09/16/18 11:50 Blood Culture - Preliminary Blood No Growth after 48 hours Assessment and Plan Assessment: Impression: #1 Right anterior chest wall pain secondary to 6.0 x 3.3 cm heterogenous collection in the right middle lobe above the diaphragm suspicious for abscess. ID and radiology review the CAT scan revealed there is no fluid to be drained. He will remain on IV Unasyn. Oral Levaquin was added. #2 Febrile illness secondary to above. Recovered. #3 Basilar infiltrates/atelectasis. #4 History of vertigo. Plan: The patient was seen and evaluated by Dr. Montero. The patient is improving as far as his symptoms are concerned. He is currently on Unasyn and oral Levaquin. The plan is for continued IV therapy. A PICC line will be placed. We will continue to follow and make further recommendations based on his clinical status. I, the cosigning physician, performed a history & physical examination of the patient. Lungs sounds with crackles in the bilateral posterior bases. Maintaining good O2 saturations in the 90s on room air. I discussed the assessment and plan of care with my nurse practitioner, Anny Kuhn. I attest to the above note as dictated by her.
--- NOTE | 2018-09-19 15:40 | P.PN ---
Subjective Progress Note Date: 09/19/18 Principal diagnosis: Lung abscess Patient was seen and examined. No acute events overnight. Patient reports right -sided chest pain with deep inspiration. No more cough or shortness of breath. He has no other complaints this morning. Objective - Vital Signs Vital signs: Vital Signs Temp 97.6 F 09/19/18 07:00 Pulse 73 09/19/18 07:00 Resp 18 09/19/18 07:00 BP 159/87 09/19/18 07:00 Pulse Ox 93 L 09/19/18 07:00 Intake & Output 09/18/18 09/19/18 09/19/18 18:59 06:59 18:59 Intake Total 800 Balance 800 Intake: Intake, IV Titration 800 Amount Ampicillin-Sulbactam 3 gm 100 In Sodium Chloride 0.9% 100 ml @ 200 mls/hr IVPB Q6HR [facility] Rx#:[id number] Sodium Chloride 0.9% 1, 700 000 ml @ 100 mls/hr IV . Q10H [facility] Rx#:[id number] Other: # Voids 2 1 - Exam General: [non toxic], [no distress], [appears at stated age] Derm: [warm], [dry] Head: [atraumatic], [normocephalic], [symmetric] Eyes: [EOMI], [no lid lag], [anicteric sclera] Mouth: [no lip lesion], [mucus membranes moist] Cardiovascular: [S1S2 reg], [no murmur], [positive posterior tibial pulse bilateral], Lungs: [Decreased breath sounds bilateral], [no rhonchi, no rales] , [no accessory muscle use] Abdominal: [soft], [ nontender to palpation], [no guarding], [no appreciable organomegaly] Ext: [no gross muscle atrophy], [no edema], [no contractures] Neuro: [no focal neuro deficits] Psych: [Alert], [oriented], [appropriate affect] - Labs CBC & Chem 7: 09/17/18 08:11 09/16/18 11:50 Labs: Microbiology - Last 24 Hours (Table) 09/16/18 11:50 Blood Culture - Preliminary Blood No Growth after 48 hours Assessment and Plan Assessment: Assessment and Plan 1. Pulmonary abscess: Patient is afebrile with no leukocytosis. Lactic acid 2.4 to 1.2. CXR shows bibasilar infiltrates. D Dimer 1.13, CTA shwos 6 x 3.3 cm mass. Tylenol 650 mg PO Q6H PRN for fever. Continue Unsyn 3g IV Q6H, Levofloxacin 750 mg PO QD. O2 per NC to maintain O2 sat > 92%. FU Blood and Sputum Cx. FU Pulmonology, ID consult. Patient is improving. Will discuss with IR/ID the need for culture and possible PICC for senior living Abx. Continue IV Abx at this time. Pulmonology and ID on board.
[2018-09-20] MEDS: AMPICILLIN-SULBACTAM 3 GM in SODIUM CHLORIDE 0.9% 100 ML IVPB SCH ×5 (00:34→23:07)
[2018-09-20] MEDS: SODIUM CHLORIDE 0.9% 1,000 ML IV SCH ×3 (00:35→20:36)
--- NOTE | 2018-09-20 07:06 | PN ---
PROGRESS NOTE DATE OF SERVICE: 09/19/2018 REASON FOR FOLLOWUP: Right middle lung pneumonia. INTERVAL HISTORY: The patient is currently afebrile, has been breathing more comfortably. The right- sided chest pain has improved. He continues to have a cough, but not bringing up any sputum. No nausea, vomiting. No abdominal pain, no diarrhea. EXAMINATION: Blood pressure is 155/84 with a pulse of 71, temperature 98.7. He is 96% on 2 L nasal cannula. General description is an elderly male up in the bed in no distress. Respiratory System: Unlabored breathing with decreased breath sounds, no wheeze. Heart S1, S2. Regular rate and rhythm. LABS: Hemoglobin is 14.8, white count 8.9, BUN of 20, creatinine 0.91. DIAGNOSTIC IMPRESSION AND PLAN: Patient with right middle lung pneumonia with concern for possible abscess. The patient at this time to continue with Unasyn and Levaquin. Hopefully he will get the med line on Friday for IV antibiotic therapy in the outpatient setting for at least 2 weeks with close outpatient followup. Continue supportive care. MMODL / IJN: [id number] /
[2018-09-20] MEDS: LEVOFLOXACIN 750 MG TAB PO SCH (08:26)
--- NOTE | 2018-09-20 11:48 | P.PN ---
Subjective Progress Note Date: 09/20/18 Principal diagnosis: Lung abscess Patient seen and examined. No acute events overnight. Patient reports improvement in his breathing. Patient continues to report cough, nonproductive. He denies any chest pain or palpitations. States would prefer oral antibiotics. Lives with his at home and has assessable help. Complains of loose stools. Objective - Vital Signs Vital signs: Vital Signs Temp 98.1 F 09/20/18 05:45 Pulse 73 09/20/18 05:45 Resp 16 09/20/18 05:45 BP 155/83 09/20/18 05:45 Pulse Ox 96 09/20/18 07:28 Intake & Output 09/19/18 09/20/18 09/20/18 18:59 06:59 18:59 Other: # Voids 3 1 - Exam General: [non toxic], [no distress], [appears at stated age] Derm: [warm], [dry] Head: [atraumatic], [normocephalic], [symmetric] Eyes: [EOMI], [no lid lag], [anicteric sclera] Mouth: [no lip lesion], [mucus membranes moist] Cardiovascular: [S1S2 reg], [no murmur], [positive DP pulse bilateral], Lungs: [Decreased breath sounds bilateral], [no rhonchi, no rales] , [no accessory muscle use] Abdominal: [soft], [ nontender to palpation], [no guarding], [no appreciable organomegaly] Ext: [no gross muscle atrophy], [no edema], [no contractures] Neuro: [no focal neuro deficits] Psych: [Alert], [oriented], [appropriate affect] - Labs CBC & Chem 7: 09/17/18 08:11 09/16/18 11:50 Labs: Microbiology - Last 24 Hours (Table) 09/16/18 11:50 Blood Culture - Preliminary Blood No Growth after 72 hours Assessment and Plan Assessment: Assessment and Plan 1. Pulmonary abscess: Patient is afebrile with no leukocytosis. Lactic acid 2.4 to 1.2. CXR shows bibasilar infiltrates. D Dimer 1.13, CTA shows 6 x 3.3 cm mass (PE ruled out). Tylenol 650 mg PO Q6H PRN for fever. Continue Unsyn 3g IV Q6H, Levofloxacin 750 mg PO QD. O2 per NC to maintain O2 sat > 92%. Blood Cx prelim negative after 72H. FU Blood (final) and Sputum Cx. As per ID, PICC line for IV Abx on Friday. FU Pulmonology, ID consult. Patient is improving. PICC line on Friday for 2 weeks of IV Abx. Continue IV Abx at this time. Pulmonology and ID on board.
--- NOTE | 2018-09-20 15:25 | P.PN ---
Subjective Progress Note Date: 09/20/18 Principal diagnosis: Right lung abscess This is a very pleasant 68-year-old gentleman who follows with Dr. Joseph as his primary care physician. No significant past medical history. He is a lifelong nonsmoker. He presented here to the emergency room yesterday with a one-week complaint of increasing shortness of breath, cough and congestion. He also had some right-sided chest discomfort that he initially thought was due to a muscle strain from moving furniture but then the pain continued and eventually got worse and he presented here to the ER for the same. A CT angiogram of the chest revealed a 6.0 x 3.3 cm heterogenous collection in the right middle lobe above the diaphragm suspicious for abscess. There is also a small right lower lobe pleural effusion and basilar infiltrates. He is seen today in consultation on the regular medical floor. He is awake and alert in no acute distress. He does have pain on inhalation. Still with some right anterior wall chest pain. Currently afebrile. He is maintaining O2 saturations in the mid 90s on room air. Hemodynamically stable. White count 8.9. Initial lactic 2.5, currently 1.2. He is on clindamycin. On 09/18/2018 patient seen in follow-up on the medical surgical floor. He has some mild chest discomfort with inspiration in the right chest. Afebrile, room air pulse ox is 95%, lung sounds are positive for a few crackles over anterior right chest. Did have a coughing spell this morning, was able to bring up small amount of clears phlegm. No fever, no chills. Has not been able to produce a good sputum sample, blood culture remains negative at the 24-hour josselin. Current antibiotic coverage is Unasyn. Maintenance IV fluids is 0.9 normal saline at a rate of 100. His lab work was reviewed, CBC showed WBC of 8.9, hemoglobin of 14.2. Latest lactic acid yesterday was 1.2. No new chest x- ray was done. Patient was seen in consultation by ID service, and interventional radiology will be consulted in regards to a possible cutaneous drainage of the right middle lobe abscess. The patient is seen again today 09/19/2018 in follow-up on the regular medical floor. He is currently resting quite comfortably in bed. He is awake and alert in no acute distress. He states that right-sided chest pain has nearly resolved. He is breathing easier today as compared to yesterday. He is starting to feel better. Less shortness of breath. Less cough. He is currently afebrile. Maintaining good O2 saturations in the 90s on 2 L/m per nasal cannula. He has been seen and evaluated by infectious disease. CT reviewed with radiology who feels there is no liquid component for it to be drained. The patient will continue on IV Unasyn in addition to oral Levaquin for possible community-acquired pneumonia with abscess. Blood culture reveals no growth. White count 8.9. Hemoglobin 14.2. Reevaluated today on 09/20/2018, patient is doing well, remains on Unasyn for his lung abscess, he has occasional cough, nonproductive, his chest pain has completely resolved. Patient is being followed by many consultants including infectious disease. His WBC count is 8.9 hemoglobin is 14.2, electrolytes are normal renal profile is normal. No fever documented in the last 24 hours, his T -max is 98.7, O2 saturation is 96% on 2 L Objective - Vital Signs Vital signs: Vital Signs Temp 98.1 F 09/20/18 05:45 Pulse 73 09/20/18 05:45 Resp 16 09/20/18 05:45 BP 155/83 09/20/18 05:45 Pulse Ox 96 09/20/18 07:28 Intake & Output 09/19/18 09/20/18 09/20/18 18:59 06:59 18:59 Intake Total 100 Balance 100 Intake: Intake, IV Titration 100 Amount Ampicillin-Sulbactam 3 gm 100 In Sodium Chloride 0.9% 100 ml @ 200 mls/hr IVPB Q6HR [facility] Rx#:[id number] Other: # Voids 3 1 - Exam Physical Exam: Revealed a 68-year-old white male in no distress. Head: Atraumatic, normocephalic. HEENT:[Neck is supple.] [No neck masses.] [No thyromegaly.] [No JVD.] Chest: [Clear throughout, no crackles, no rhonchi, no wheezes.] Cardiac Exam: [Normal S1 and S2, no S3 gallop, no murmur.] Abdomen: [Soft, nontender, no megaly, no rebound, no guarding, normal bowel sounds.] Extremities: [No clubbing, no edema, no cyanosis.] Neurological Exam: [No focal neurologic deficit. Psychiatric: Normal mood affect and mental status examination. Skin: No rashes.] - Labs CBC & Chem 7: 09/17/18 08:11 09/16/18 11:50 Labs: Microbiology - Last 24 Hours (Table) 09/16/18 11:50 Blood Culture - Preliminary Blood No Growth after 72 hours Assessment and Plan Assessment: #1 Right anterior chest wall pain secondary to 6.0 x 3.3 cm heterogenous collection in the right middle lobe above the diaphragm suspicious for abscess. ID and radiology review the CAT scan revealed there is no fluid to be drained. He will remain on IV Unasyn. Oral Levaquin was added. #2 Febrile illness secondary to above. Recovered. #3 Basilar infiltrates/atelectasis. #4 History of vertigo. Recommendation: Continue present supportive care measures, continue antibiotics as per ID, patient will likely require a long-term treatment with antibiotics probably 4-6 weeks, and if the patient fails to respond to medical therapy, then he could be considered for referral to surgery. We'll continue to follow. Time with Patient: Less than 30
--- NOTE | 2018-09-21 | PN ---
PROGRESS NOTE DATE OF SERVICE: 09/20/2018. REASON FOR FOLLOW UP: Right midlung pneumonia, question of aspiration. INTERVAL HISTORY: The patient is afebrile. The right side of the chest pain has decreased intensity, cough has mild to moderate intensity, remains to be drainage. No nausea, no vomiting. No abdominal pain. No diarrhea. EXAMINATION: Blood pressure 153/76, pulse of 78, temperature of 98. He is 94% on room air. General description is an elderly male lying in bed in no distress. Respiratory system: Unlabored breathing. Clear to auscultation anteriorly. Heart S1, S2. Regular rate and rhythm. Abdomen soft. No tenderness. EXTREMITIES: No edema of the feet. LABS: Hemoglobin is 14.8, white count 8.9. Blood culture has been negative. He was unable to provide any sputum. DIAGNOSTIC IMPRESSION AND PLAN: Patient with right middle lobe pneumonia with question of aspiration etiology. Clinically doubt abscess. The patient responded to Unasyn and Levaquin. The plan to switch him over to Rocephin 2 g daily with oral Flagyl 500 mg 3 times a day for 2 weeks with close outpatient followup. He will get a mid line tomorrow. Continue supportive care. present at bedside. Questions were answered. MMODL / IJN: [id number] /
[2018-09-21] MEDS: AMPICILLIN-SULBACTAM 3 GM in SODIUM CHLORIDE 0.9% 100 ML IVPB SCH (05:01)
[2018-09-21] MEDS: SODIUM CHLORIDE 0.9% 1,000 ML IV SCH ×2 (05:22→15:40)
[2018-09-21 05:46] VITALS: RESP 16
[2018-09-21] MEDS: LEVOFLOXACIN 750 MG TAB PO SCH (08:58)
[2018-09-21] MEDS ORDERED: cefTRIAXone 2,000 MG in SODIUM CHLORIDE 0.9% 100 ML IVPB SCH (11:00)
--- NOTE | 2018-09-21 13:04 | P.DS ---
Providers Date of admission: 09/16/18 15:46 Expected date of discharge: 09/21/18 Attending physician: Rony Ferrera MD Consults: 09/16/18 15:43 Consult Physician Routine Consulting Provider: Fred Montero Consult Reason/Comments: lung abcess Do you want consulting provider notified?: Yes 09/16/18 16:01 Consult Physician Routine Consulting Provider: Sukhjinder Pryor Consult Reason/Comments: lung abcess Do you want consulting provider notified?: Yes Primary care physician: Jersey Joseph - Discharge Diagnosis(es) (1) Lung abscess Current Visit: Yes Status: Acute Hospital Course: 68 yo M with no significant PMH who presented to the ED for R sided chest pain of 5 days duration. He notes that he was in his usual state of health until 5 days ago when him and his developed a URI w/ cough, runny nose, and sore throat. He then subsequently developed a R sided pleuritic chest pain which he initially attributed to a muscle sprain likely from moving furniture around the house. The pain is pleuritic in nature, brought on w/ movement, deep breathing, or coughing w/ associated non-productive cough. He otherwise denied fever, chills, SOB, nausea, vomiting, visual disturbances, dizziness, LE pain, LE swelling, recent travel, sick contacts, difficuly swallowing, or aspirations. In the ED, the patient had an extensive w/u WBC 9.5, Hgb 16.0, D-Dimer 1.13, Sodium 139, Cr 0.9. A Chest CTA was ordered and showed a 6.0 x 3.3 cm heterogenous collection in the R middle lobe over the diaphragm concerning for an abscess along w/ small R pleural effusion. With regard to the pulmonary abscess, patient is afebrile with no leukocytosis throughout his admission. Lactic acid was initially 2.4 which trended down to 1.2. Patient was initially started on Unasyn 3 g IV every 6 hours and levofloxacin 750 mg by mouth daily. He was given oxygen per nasal cannula to maintain an oxygen saturation greater than 92% blood cultures were prelim negative after 96 hours. Sputum culture was unable to be obtained due to the cough being nonproductive. Infectious disease was consulted at this time and the decision was made to change his antibiotics to ceftriaxone 2 g IV daily and Flagyl 500 mg by mouth 3 times a day. Patient was scheduled and obtained midline for IV antibiotics in the outpatient setting. Patient seen and examined prior to discharge. No acute events overnight. Patient reports great improvement in his breathing since admission. Patient continues to complain of a dry cough. He denies any chest pain or shortness of breath. Has midline, pending insurance approval for IV antibiotics. General: [non toxic], [no distress], [appears at stated age] Derm: [warm], [dry] Head: [atraumatic], [normocephalic], [symmetric] Eyes: [EOMI], [no lid lag], [anicteric sclera] Mouth: [no lip lesion], [mucus membranes moist] Cardiovascular: [S1S2 reg], [no murmur], [positive DP pulse bilateral], Lungs: [Decreased breath sounds bilateral], [no rhonchi, no rales] , [no accessory muscle use] Abdominal: [soft], [ nontender to palpation], [no guarding], [no appreciable organomegaly] Ext: [no gross muscle atrophy], [no edema], [no contractures] Neuro: [no focal neuro deficits] Psych: [Alert], [oriented], [appropriate affect] Assessment and Plan 1. Pulmonary abscess: Patient is afebrile with no leukocytosis. Lactic acid 2.4 to 1.2. CXR shows bibasilar infiltrates. D Dimer 1.13, CTA shows 6 x 3.3 cm mass (PE ruled out). Tylenol 650 mg PO Q6H PRN for fever. DC Unsyn 3g IV Q6H, Levofloxacin 750 mg PO QD and swtich to Ceftriaxone 2g IV QD and Flagyl 500 mg PO TID. O2 per NC to maintain O2 sat > 92%. Blood Cx prelim negative after 796H. FU Blood (final) and Sputum Cx. FU Pulmonology, ID consult. Patient is improving. Has midline already. Pending insurance approval for IV antibiotics. Likely discharge today. Pertinent Studies: Chest x-ray Chest CTA Patient Condition at Discharge: Stable Plan - Discharge Summary Discharge Rx Participant: Yes New Discharge Prescriptions: New cefTRIAXone [Rocephin] 2,000 mg IVPB Q24HR #14 vial metroNIDAZOLE [Flagyl] 500 mg PO Q8HR #42 tab Continue Naproxen Sodium [Aleve] 440 mg PO DAILY PRN PRN Reason: Pain Or Fever > 100.5 No Action metroNIDAZOLE [metroNIDAZOLE 0.75% Gel] 1 applic TOPICAL DAILY Discharge Medication List Naproxen Sodium [Aleve] 440 mg PO DAILY PRN 09/16/18 [History] metroNIDAZOLE [metroNIDAZOLE 0.75% Gel] 1 applic TOPICAL DAILY 09/16/18 [History ] cefTRIAXone [Rocephin] 2,000 mg IVPB Q24HR #14 vial 09/21/18 [Rx] metroNIDAZOLE [Flagyl] 500 mg PO Q8HR #42 tab 09/21/18 [Rx] Follow up Appointment(s)/Referral(s): None,Stated [REFERRING] - 1-2 days Sukhjinder Pryor MD [STAFF PHYSICIAN] - 1 Week Activity/Diet/Wound Care/Special Instructions: Diet: Regular diet Please take all medications as advised. Please follow-up with your primary care provider within 1-2 days of discharge. Please follow-up with infectious disease Dr. Pryor with the appointment given to you. Discharge Disposition: HOME SELF-CARE
[2018-09-21 14:58] VITALS: BP 145/71; PULSE 79; TEMP 98.3
--- NOTE | 2018-09-21 15:15 | P.PN ---
Subjective Progress Note Date: 09/21/18 Principal diagnosis: Right-sided chest discomfort, shortness of breath, right middle lobe abscess This is a very pleasant 68-year-old gentleman who follows with Dr. Joseph as his primary care physician. No significant past medical history. He is a lifelong nonsmoker. He presented here to the emergency room yesterday with a one-week complaint of increasing shortness of breath, cough and congestion. He also had some right-sided chest discomfort that he initially thought was due to a muscle strain from moving furniture but then the pain continued and eventually got worse and he presented here to the ER for the same. A CT angiogram of the chest revealed a 6.0 x 3.3 cm heterogenous collection in the right middle lobe above the diaphragm suspicious for abscess. There is also a small right lower lobe pleural effusion and basilar infiltrates. He is seen today in consultation on the regular medical floor. He is awake and alert in no acute distress. He does have pain on inhalation. Still with some right anterior wall chest pain. Currently afebrile. He is maintaining O2 saturations in the mid 90s on room air. Hemodynamically stable. White count 8.9. Initial lactic 2.5, currently 1.2. He is on clindamycin. On 09/18/2018 patient seen in follow-up on the medical surgical floor. He has some mild chest discomfort with inspiration in the right chest. Afebrile, room air pulse ox is 95%, lung sounds are positive for a few crackles over anterior right chest. Did have a coughing spell this morning, was able to bring up small amount of clears phlegm. No fever, no chills. Has not been able to produce a good sputum sample, blood culture remains negative at the 24-hour josselin. Current antibiotic coverage is Unasyn. Maintenance IV fluids is 0.9 normal saline at a rate of 100. His lab work was reviewed, CBC showed WBC of 8.9, hemoglobin of 14.2. Latest lactic acid yesterday was 1.2. No new chest x- ray was done. Patient was seen in consultation by ID service, and interventional radiology will be consulted in regards to a possible cutaneous drainage of the right middle lobe abscess. The patient is seen again today 09/19/2018 in follow-up on the regular medical floor. He is currently resting quite comfortably in bed. He is awake and alert in no acute distress. He states that right-sided chest pain has nearly resolved. He is breathing easier today as compared to yesterday. He is starting to feel better. Less shortness of breath. Less cough. He is currently afebrile. Maintaining good O2 saturations in the 90s on 2 L/m per nasal cannula. He has been seen and evaluated by infectious disease. CT reviewed with radiology who feels there is no liquid component for it to be drained. The patient will continue on IV Unasyn in addition to oral Levaquin for possible community-acquired pneumonia with abscess. Blood culture reveals no growth. White count 8.9. Hemoglobin 14.2. Reevaluated today on 09/20/2018, patient is doing well, remains on Unasyn for his lung abscess, he has occasional cough, nonproductive, his chest pain has completely resolved. Patient is being followed by many consultants including infectious disease. His WBC count is 8.9 hemoglobin is 14.2, electrolytes are normal renal profile is normal. No fever documented in the last 24 hours, his T -max is 98.7, O2 saturation is 96% on 2 L The patient is seen today 09/21/2018 in follow-up on the regular medical floor. He is awake and alert in no acute distress. He denies any worsening shortness of breath, cough or congestion. His right-sided chest discomfort has resolved. He has been afebrile. Maintaining good O2 saturations in the 90s on room air. Hemodynamically stable. He is anxious to go home. Plan is for PICC line insertion today. Her ID service is the plan of her Rocephin 2 g daily with oral Flagyl 500 mg 3 times a day for 2 weeks. Objective - Vital Signs Vital signs: Vital Signs Temp 98.3 F 09/21/18 14:07 Pulse 79 09/21/18 14:07 Resp 16 09/21/18 14:07 BP 145/71 09/21/18 14:07 Pulse Ox 93 L 09/21/18 14:07 Intake & Output 09/20/18 09/21/18 09/21/18 18:59 06:59 18:59 Intake Total 100 600 Balance 100 600 Intake: Intake, IV Titration 100 Amount Ampicillin-Sulbactam 3 gm 100 In Sodium Chloride 0.9% 100 ml @ 200 mls/hr IVPB Q6HR [facility] Rx#:[id number] Oral 600 Other: Voiding Method Toilet Urinal # Voids 1 1 2 # Bowel Movements 1 - Exam GENERAL EXAM: Alert, active, comfortable in no apparent distress. HEAD: Normocephalic. EYES: Normal reaction of pupils, equal size. NOSE: Clear with pink turbinates. THROAT: No erythema or exudates. NECK: No masses, no JVD. CHEST: No chest wall deformity. LUNGS: Equal air entry with no crackles, wheeze, rhonchi or dullness. CVS: S1 and S2 normal with no audible murmur, regular rhythm. ABDOMEN: No hepatosplenomegaly, normal bowel sounds, no guarding or rigidity. SPINE: No scoliosis or deformity SKIN: No rashes CENTRAL NERVOUS SYSTEM: No focal deficits, tone is normal in all 4 extremities. EXTREMITIES: There is no peripheral edema. No clubbing, no cyanosis. Peripheral pulses are intact. - Labs CBC & Chem 7: 09/17/18 08:11 09/16/18 11:50 Labs: Abnormal Lab Results - Last 24 Hours (Table) 09/17/18 Range/Units 08:11 C-Reactive Protein 61.0 H (<10.0) mg/L Microbiology - Last 24 Hours (Table) 09/16/18 11:50 Blood Culture - Preliminary Blood No Growth after 96 hours Assessment and Plan Assessment: Impression: #1 Right anterior chest wall pain secondary to 6.0 x 3.3 cm heterogenous collection in the right middle lobe above the diaphragm suspicious for abscess. ID and radiology review the CAT scan revealed there is no fluid to be drained. The patient will be discharged on Rocephin IV and oral Flagyl per ID services. #2 Febrile illness secondary to above. Recovered. #3 Basilar infiltrates/atelectasis. #4 History of vertigo. Plan: The patient was seen and evaluated by Dr. Kc. The plan is for PICC line insertion today. He'll be discharged on IV Rocephin and oral Flagyl per ID services. He should follow-up in our office in 1-2 weeks' time. We'll repeat a chest x-ray then. He is however encouraged to call sooner with any recurrence of symptoms or other questions or concerns. I, the cosigning physician, performed a history & physical examination of the patient. Lungs sounds clear. Maintaining good O2 saturations in the 90s on room air. I discussed the assessment and plan of care with my nurse practitioner, Anny Kuhn. I attest to the above note as dictated by her.
[2018-09-21] MEDS ORDERED: metroNIDAZOLE 500 MG TAB PO SCH (16:00)
--- NOTE | 2018-09-22 01:43 | PN ---
PROGRESS NOTE DATE OF SERVICE: 09/21/2018. REASON FOR FOLLOWUP: Possible aspiration pneumonia. INTERVAL HISTORY: The patient is seen on rounds early this afternoon. The patient denies having any chest pain. Occasional cough. Decreased in intensity. Not bringing up any sputum. No nausea, no vomiting. No abdominal pain. No diarrhea. EXAMINATION: Blood pressure 145/71 with a pulse of 79, temperature 98.3. He is 93% on room air. General description is an elderly male up in the bed in no distress. Respiratory system: Unlabored breathing. Decreased breath sounds in the bases. No wheeze. Heart S1, S2. Regular rate and rhythm. Abdomen soft, no tenderness. LABS: CRP 61. DIAGNOSTIC IMPRESSION/PLAN: Patient with right middle lobe pneumonia with question of possible abscess. Patient's antibiotic will be adjusted to Rocephin 2 g daily in addition to oral Flagyl for 2 weeks with close outpatient followup with a repeat CT at the end of antibiotic to make sure has completely resolved. Continue supportive care. MMODL / IJN: [id number] /
== END 2018-09-21 15:41 | disposition home health service (06) | DRG 178 ==
LOC: EC 11:28 → 4MS4W 15:46
PROVIDERS: ADMIT Internal Medicine; ATTEND Internal Medicine
PROC: 05HC33Z Insertion of Infusion Device into Left Basilic Vein, Percutaneous Approach (ICD-10-PCS; principal; 2018-09-21 12:00)
DX: J85.1 Abscess of lung with pneumonia (principal); E87.2 Acidosis; J91.8 Pleural effusion in other conditions classified elsewhere; E66.9 Obesity, unspecified; Z68.30 Body mass index [BMI] 30.0-30.9, adult; Z79.1 Long term (current) use of non-steroidal anti-inflammatories (NSAID); Z82.3 Family history of stroke; Z82.49 Family history of ischemic heart disease and other diseases of the circulatory system; Z82.0 Family history of epilepsy and other diseases of the nervous system
CPT/HCPCS: 36415; 36569; 71046; 71275; 76937; 80053; 82550; 82553; 83605; 83735; 84484; 85025; 85027; 85379; 85610; 85730; 86140; 87040; 93005; 94760; 96361; 96365; 96366; 99285

== ENCOUNTER → 2018-10-29 | Outpatient (CLI) | payer MEDICARE ==
[2018-10-29 11:16] LABS: Blood Urea Nitrogen 13 mg/dL (9-20)
--- NOTE | 2018-10-29 11:56 | CT ---
EXAMINATION TYPE: CT chest w con DATE OF EXAM: 10/29/2018 COMPARISON: 09/16/2018 HISTORY: Follow up pneumonia. CT DLP: 671 mGycm Automated exposure control for dose reduction was used. CONTRAST: CT scan of the chest is performed with IV Contrast, patient injected with 100 mL of Isovue M300. FINDINGS: LUNGS: Right middle lobe collection has resolved. There is a focal area of pleural thickening measuri ng 2.4 x 1.1 cm. No additional abnormal densities identified at this time. The lungs are otherwise cl ear. MEDIASTINUM: There are no greater than 1 cm hilar or mediastinal lymph nodes. No pericardial effusi on is seen. Thoracic aorta is of normal caliber. The heart is not enlarged. UPPER ABDOMEN: There is evidence of fatty hepatic infiltration. Cholelithiasis noted. OTHER: No additional significant abnormality is seen. IMPRESSION: Right middle lobe collection has resolved. There is a focal area of pleural thickening m easuring 2.4 x 1.1 cm. No additional abnormal densities identified at this time.
== END | disposition home or self-care (01) ==
LOC: RADCTMAIN 10:35
PROVIDERS: ATTEND Internal Medicine Infectious Disease
DX: J92.9 Pleural plaque without asbestos (principal)
CPT/HCPCS: 82565; 84520; 71260; 36415; Q9967

== ENCOUNTER → 2019-03-11 | Outpatient (CLI) | payer MEDICARE ==
--- NOTE | 2019-03-12 07:23 | US ---
EXAMINATION TYPE: US scrotum with doppler. Grayscale and color Doppler Duplex imaging performed of elsa chris scrotum. DATE OF EXAM: 03/11/2019 COMPARISON: NONE CLINICAL HISTORY: N509 DISORDER OF MALE GENITALS. Disorder of male genital organs per order. Discomfo rt bilateral testicles. Palpable area right side for years. EXAM MEASUREMENTS: TESTICLES: Right Testicle: 4.0 x 2.9 x 2.6 cm Left Testicle: 4.1 x 2.2 x 2.5 cm EPIDIDYMIS HEAD: Right Epididymis: 2.3 x 2.7 x 2.2 cm Left Epididymis: 1.4 x 1.0 x 0.9 cm Doppler performed to assess for testicular vascularity; good bilateral color flow and waveforms are s een. There is no evidence of testicular torsion. Anechoic area seen within right epididymal head measurin.2 x 2.3 x 2.0 cm. Left epididymal head appears heterogeneous. Anechoic areas seen left epididymal head, largest measuri n.5 x 0.4 x 0.3 cm. Presence of hydroceles: Fluid seen medial to right testicle measurin.1 x 0.6 x 1.1 cm, small lef t hydrocele Presence of varicoceles: None seen Testicular echotexture is homogenous and symmetric IMPRESSION: Probable epididymal cyst or spermatocele on the right measuring 2.3 cm with right hydroce le greater than left.
== END | disposition home or self-care (01) ==
LOC: RADUSWWP 15:24
PROVIDERS: ATTEND Family Medicine
DX: N43.3 Hydrocele, unspecified (principal)
CPT/HCPCS: 76870; 93975

== ENCOUNTER → 2022-04-25 | Outpatient (CLI) | payer MEDICARE, OTHER ==
--- NOTE | 2022-04-25 10:12 | US ---
EXAMINATION TYPE: US abdomen limited DATE OF EXAM: 04/25/2022 COMPARISON: NONE CLINICAL HISTORY: R10.11 RUQ PAIN. RUQ pain x 2 years EXAM MEASUREMENTS: Liver Length: 17.7 cm Gallbladder Wall: 0.2 cm CBD: 0.3 cm Right Kidney: 12.4 x 5.3 x 5.3 cm Pancreas: limited by overlying midline bowel gas Liver: measures in upper limits of normal, course echotexture Gallbladder: 1.1cm stone seen Evidence for sonographic Aguila's sign: no CBD: visualized portions wnl, limited by overlying bowel gas Right Kidney: wnl IMPRESSION: 1. Fatty liver. 2. Cholelithiasis.
== END | disposition home or self-care (01) ==
LOC: RADUSWWP 08:56
PROVIDERS: ATTEND Family Medicine
DX: K76.0 Fatty (change of) liver, not elsewhere classified (principal); K80.20 Calculus of gallbladder without cholecystitis without obstruction
CPT/HCPCS: 76705

== ENCOUNTER → 2025-02-16 | Outpatient (CLI) | payer MEDICARE, OTHER ==
--- NOTE | 2025-02-16 14:27 | CT ---
EXAMINATION TYPE: CT chest wo con DATE OF EXAM: 02/16/2025 COMPARISON: 10/29/2018 CLINICAL INDICATION: Male, 74 years old with history of R91.8, R05.9 COUGH, R07.9 CHEST PAIN; [facility], Co ugh. TECHNIQUE: CT scan of the thorax is performed without IV contrast. CT DLP: [address] CTDI: mGy Automated exposure control for dose reduction was used. FINDINGS: There is a new 4.7 nodule in the right lower lobe. There is stable mild localized interstitial scarri ng in the right lower lobe medially. Stable pleural-parenchymal scarring right middle lobe. The great vessels the chest is normal and there is no pleural, hilar or axillary adenopathy. There is no pleural effusion or pneumothorax. There is no airspace consolidation. Limited scanning through the upper abdomen reveals no gross abnormality. There are no focal osseous lesions. IMPRESSION: 1. No acute cardiopulmonary disease. 2. Stable pleural-parenchymal changes in the right middle lobe and stable interstitial changes medial ly. 3. New 4.7 mm nodule in the right lower lobe. If this is a high-risk patient then follow-up CT in 6 [place] [facility] is recommended to confirm stability. [facility], , 02/16/2025 2:25 PM
--- NOTE | 2025-02-16 15:48 | MR ---
INDICATION: Patient age:Male; 74 years old; Reason for study: R91.8, R05.9 COUGH, R07.9 CHEST PAIN; [facility]. COMPARISON: None. TECHNIQUE: Multi planar, multi sequence imaging was performed through the brain. The patient was then given 10.5 cc of Gadobutrol intravenously and multi planar, T1 fat-saturation images were obtained. FINDINGS: The lawrence-white junctions, ventricular system, basal cisterns appear unremarkable. Age-appropriate cer ebral volume loss. Diffusion-weighted imaging shows no evidence of restricted diffusion to suggest ac bruno/subacute infarct. Hypoplastic appearance of the V4 segment of the left vertebral artery. Midline structures show no abnormality. Patchy areas of high T2/FLAIR signal intensity are seen within the ken pratentorial periventricular and subcortical white matter. The susceptibility weighted images demonst rate a single focus of blooming artifact within the right davis from prior hemosiderin deposition. Aft er administration of gadolinium, no abnormal enhancement is seen. The bone marrow signal is within normal limits. The globes are unremarkable. Mild mucosal thickening in the ethmoid sinuses. IMPRESSION: 1. No evidence of intracranial mass, acute/subacute infarct, or abnormal enhancement. 2. Nonspecific mild white matter changes, likely related to small vessel ischemic disease. [facility], , 02/16/2025 3:45 PM
== END | disposition home or self-care (01) ==
LOC: RADCTMAIN 13:51
PROVIDERS: ATTEND Family Medicine
DX: G50.1 Atypical facial pain (principal); R91.8 Other nonspecific abnormal finding of lung field; J98.4 Other disorders of lung; H92.01 Otalgia, right ear; R91.1 Solitary pulmonary nodule; R90.82 White matter disease, unspecified
CPT/HCPCS: 71250; 70553; A9585